=== PATIENT | male | born 1990 | race Caucasian/White ===

== ENCOUNTER 2017-10-10 20:47 | Emergency (ER) | payer OTHER ==
[~2017-10-10] VITALS: Ht 185.4 cm; Wt 138.3 kg
[2017-10-10 20:59] VITALS: Ht 185.4 cm; Wt 138.3 kg
[2017-10-10 22:43] VITALS: BP 140/96
== END 2017-10-10 22:43 | disposition home or self-care (01) ==
LOC: ED 20:47
DX: J20.9 Acute bronchitis, unspecified (principal); K21.9 Gastro-esophageal reflux disease without esophagitis; E11.9 Type 2 diabetes mellitus without complications
CPT/HCPCS: 87804; J7512; J7613

== ENCOUNTER 2017-10-17 16:03 | Emergency (ER) | payer OTHER ==
[~2017-10-17] VITALS: Ht 185.4 cm; Wt 137.4 kg
[2017-10-17 16:14] VITALS: Ht 185.4 cm; Wt 137.4 kg
[2017-10-17 18:17] LABS: microscopic required? NO
[2017-10-17 18:28] LABS: urine erythrocyte NEGATIVE (NEGATIVE)
[2017-10-17 18:30] LABS: BASOPHIL % 0.4 % (0-2); PLATELET COUNT 275 x10^3mcL (130-400); RED CELL DISTRIBUTION WIDTH 13.2 % (11.5-14.5)
[2017-10-17 18:41] LABS: CALCIUM 10.1 mg/dL (8.5-10.1); CARBON DIOXIDE 25.7 mmol/L (21-32); CHLORIDE SERUM 102 mmol/L (98-107); GFR1 > 60 mL/min; GLUCOSE SERUM 104 mg/dL (74-106); POTASSIUM SERUM 3.9 mmol/L (3.5-5.1); SODIUM SERUM 139 mmol/L (136-145)
[2017-10-17 18:51] LABS: ALBUMIN 4.2 g/dL (3.4-5.0); ALKALINE PHOSPHATASE 86 U/L (46-116); ALT/SGPT 58 U/L (16-63); AST/SGOT 24 U/L (15-37); BILIRUBIN TOTAL 0.43 mg/dL (0.20-1.00); TOTAL PROTEIN, SERUM 8.1 g/dL (6.4-8.2)
[2017-10-17 20:00] VITALS: BP 138/77
[2017-10-17 20:23] LABS: AMPHETAMINE QUAL UR NONE DETECTED (NEG <=1000)
== END 2017-10-17 20:00 | disposition home or self-care (01) ==
LOC: ED 16:03
PROVIDERS: Emergency Medicine
DX: R06.4 Hyperventilation (principal); R35.0 Frequency of micturition; E11.9 Type 2 diabetes mellitus without complications; K21.9 Gastro-esophageal reflux disease without esophagitis
CPT/HCPCS: 36600; J1885; J7030